=== PATIENT | male | born 1945 | race Caucasian/White ===

== ENCOUNTER 2018-03-28 13:14 | Emergency (ER) | payer MEDICARE ==
[~2018-03-28] VITALS: Ht 180.3 cm; Wt 83.5 kg
[2018-03-28 14:42] LABS: International Normalized Ratio 1.68
== END 2018-03-28 14:49 | disposition home or self-care (01) ==
LOC: ER 13:14
PROVIDERS: Physician Assistant
DX: M54.5 Low back pain (principal); D68.9 Coagulation defect, unspecified; Z88.5 Allergy status to narcotic agent; I10 Essential (primary) hypertension; Z87.891 Personal history of nicotine dependence
CPT/HCPCS: 85610; 96372; 99283-25; J1885

== ENCOUNTER 2018-07-31 15:24 | Inpatient (IN) | payer MEDICARE, BC ==
[~2018-07-31] VITALS: Ht 180.3 cm; Wt 80.7 kg
[2018-07-31] MEDS ORDERED: LISI5 PO (15:37)
[2018-07-31] MEDS ORDERED: ZESTRIL40 MG PO (15:37)
[2018-07-31] MEDS ORDERED: WARF6 PO (15:38)
[2018-07-31 19:36] LABS: BASOPHILS ABSOLUTE AUTO 0.02 K/mm3 (0.00-0.23); BASOPHILS PERCENT AUTO 0 % (0-2); EOSINOPHILS ABSOLUTE AUTO 0.06 K/mm3 (0.00-0.68); EOSINOPHILS PERCENT AUTO 1 % (0-6); Hemoglobin 13.8 g/dL (13.5-17.5); IMMATURE GRAN ABSOLUTE AUTO 0.02 K/mm3 (0.00-0.10); IMMATURE GRAN PERCENT AUTO 0 % (0-1); LYMPHOCYTES PERCENT AUTO 7 % (21-46); MONOCYTES ABSOLUTE AUTO 0.69 K/mm3 (0.16-1.47); MONOCYTES PERCENT AUTO 8 % (4-13); Mean Corpuscular HGB Conc 34.5 g/dL (31.5-36.5); Mean Corpuscular Volume 93 fL (80-100); Mean Platelet Volume 9.8 fL (9.1-12.4); NEUTROPHILS ABSOLUTE AUTO 7.09 K/mm3 (1.96-9.15); NEUTROPHILS PERCENT AUTO 84 % (41-73); Platelet Count 173 K/mm3 (150-400); RDW Coefficient Variation 12.7 % (11.7-14.2); RDW Standard Deviation 43.8 fL (35.1-46.3); Red Blood Cell Count 4.31 M/mm3 (4.30-5.90); White Blood Cell Count 8.48 K/mm3 (4.00-11.30)
[2018-07-31 19:52] LABS: Bun/Creatinine Ratio 15.4 (12.0-20.0); Calcium, Blood 8.1 mg/dL (8.5-10.1); Creatinine, Blood 1.3 mg/dL (0.60-1.20); Potassium, Blood 4.7 mmol/L (3.5-5.5)
[2018-07-31 19:58] LABS: International Normalized Ratio 1.59; Prothrombin Time Results 16.2 Sec (9.7-11.5)
--- NOTE | 2018-08-01 05:04 | NUR ---
SHIFT SUMMARY PT NEW ADMIT THIS SHIFT. AAOX4. NPO. DISCOMFORT CONTROLLED WITH 1MG IV DILAUDID. NO NAUSEA/EMESIS. PPP, PT DENIES N/T BLE, MOVES TOES WELL, BRISK CAP REFILL. PT REPOSITION FOR COMFORT THIS SHIFT. QUESTIONS ANSWERED REGARDING TX. ORIENTED TO ROOM + CALL LIGHT USE + PT DEMONSTRATED USE OF CALL LIGHT. ORTHO CONSULT CALLED. PT RESTING THIS AM. WILL CONTINUE TO MONITOR.
[2018-08-01 05:09] LABS: Hematocrit 38.6 % (37.0-53.0); Hemoglobin 13.4 g/dL (13.5-17.5); Mean Corpuscular HGB 31.7 pg (26.0-34.0); Mean Corpuscular HGB Conc 34.7 g/dL (31.5-36.5); Mean Corpuscular Volume 91 fL (80-100); Mean Platelet Volume 10.1 fL (9.1-12.4); Platelet Count 160 K/mm3 (150-400); RDW Coefficient Variation 12.8 % (11.7-14.2); RDW Standard Deviation 41.9 fL (35.1-46.3); Red Blood Cell Count 4.23 M/mm3 (4.30-5.90)
[2018-08-01 05:27] LABS: Alanine Aminotransfer (ALT/SGP 16 U/L (12-78); Albumin, Blood 3.2 g/dL (3.4-5.0); Albumin/Globulin Ratio 1.1 (0.8-1.8); Alk Phos 56 U/L (50-136); Anion Gap 6 mmol/L (6-16); Aspartate Aminotrans (AST/SGOT 17 U/L (12-37); Bilirubin, Total 1.3 mg/dL (0.1-1.0); Blood Urea Nitrogen 20 mg/dL (8-24); Bun/Creatinine Ratio 17.1 (12.0-20.0); CO2, Blood 27 mmol/L (21-32); Calcium, Blood 7.7 mg/dL (8.5-10.1); Chloride, Blood 110 mmol/L (98-108); Creatinine, Blood 1.17 mg/dL (0.60-1.20); Globulin, Blood 2.9 g/dL (2.2-4.0); Glomerular Filtration Rate >60 (60-); Glucose, Blood 101 mg/dL (70-99); Potassium, Blood 4.3 mmol/L (3.5-5.5); Sodium, Blood 143 mmol/L (136-145); Total Protein, Blood 6.1 g/dL (6.4-8.2)
[2018-08-01 07:56] LABS: International Normalized Ratio 1.56; Prothrombin Time Results 15.9 Sec (9.7-11.5)
--- NOTE | 2018-08-01 08:15 | NUR ---
DR FINLEY CONTACTED RE: INR 1.[address] TORO REQUEST TO ADMIN [facility].
[2018-08-01 14:04] LABS: International Normalized Ratio 1.33; Prothrombin Time Results 13.7 Sec (9.7-11.5)
--- NOTE | 2018-08-01 14:15 | NUR ---
PATIENT TO DAY SURGERY; HE HAS NOTIFIED BY PHONE.
--- NOTE | 2018-08-01 14:24 | NUR ---
INTO SDS VIA BED. PT REPORTS 2/10 LEFT HIP PAIN AT REST THAT INCREASED TO 6/10 WITH ANY MOVEMENT. History, Chart, Medications and Allergies reviewed before start of procedure.Lungs clear T/O to Auscultation.SATS>90% ON 2 LITERS NASAL CANULA. Patient confirms NPO status and agrees with scheduled surgery.NO PREP TO LEFT HIP DUE TO PT PAIN.
--- NOTE | 2018-08-01 20:06 | NUR ---
"TECHNOLOGY PROJECT MANAGER | PATIENT TRANSFERRED TO SURGICAL FLOOR This RN took pt to surgical floor. Helped get patient settled into room. Patient was A/O. Requesting fluids. Denied pain. SCD's on. Polar pack in room. Patient placed on 1 L NC. Sats > 92%. Advised Zuleika RN of TXA dose due now. Helped prep TXA for infusion. Receiving RN denied further questions or needs."
[2018-08-02 04:16] LABS: Hematocrit 31.2 % (37.0-53.0); Hemoglobin 10.7 g/dL (13.5-17.5); Mean Corpuscular HGB 31.9 pg (26.0-34.0); Mean Corpuscular HGB Conc 34.3 g/dL (31.5-36.5); Mean Corpuscular Volume 93 fL (80-100); Mean Platelet Volume 9.9 fL (9.1-12.4); Platelet Count 154 K/mm3 (150-400); RDW Coefficient Variation 12.6 % (11.7-14.2); RDW Standard Deviation 43.3 fL (35.1-46.3); Red Blood Cell Count 3.35 M/mm3 (4.30-5.90)
[2018-08-02 04:35] LABS: Anion Gap 5 mmol/L (6-16); Blood Urea Nitrogen 20 mg/dL (8-24); Bun/Creatinine Ratio 19.4 (12.0-20.0); CO2, Blood 27 mmol/L (21-32); Calcium, Blood 7.1 mg/dL (8.5-10.1); Chloride, Blood 106 mmol/L (98-108); Creatinine, Blood 1.03 mg/dL (0.60-1.20); Glomerular Filtration Rate >60 (60-); Glucose, Blood 189 mg/dL (70-99); Potassium, Blood 5.1 mmol/L (3.5-5.5); Sodium, Blood 138 mmol/L (136-145)
--- NOTE | 2018-08-02 07:18 | NUR ---
SUMMARY POD #1 TRINO BARROW REMAINS C/D/I. CIRC WNL. PT HAS BEEN UP TO THE BATHROOM X1 WITH 1 PERSON ASSIST, FWW, & GAIT BELT. PAIN MANAGED WITH TYLENOL & TORADOL. TOLERATING PO INTAKE. LR INFUSING @ 125 ML/HR. REPORT GIVEN TO DAY RN. CALL LIGHT IN REACH.
[2018-08-02 09:45] LABS: International Normalized Ratio 1.34; Prothrombin Time Results 13.8 Sec (9.7-11.5)
--- NOTE | 2018-08-02 18:26 | NUR ---
SHIFT SUMMARY PAIN HAS BEEN MANAGED WITH PO PAIN MEDICATION, PT REPORTS PAIN IS MINIMAL. PT WORKED WITH THERAPY TODAY. POSSIBLE HOME TOMORROW. CALCIUM WAS LOW TODAY AND WAS REPLACED. VSS. WILL MONITOR UNTIL REPORT TO ONCOMING RN.
[2018-08-03 04:11] LABS: Hematocrit 28.2 % (37.0-53.0); Hemoglobin 9.6 g/dL (13.5-17.5); Mean Corpuscular HGB 31.3 pg (26.0-34.0); Mean Corpuscular Volume 92 fL (80-100); Mean Platelet Volume 10.1 fL (9.1-12.4); Platelet Count 138 K/mm3 (150-400); RDW Coefficient Variation 12.9 % (11.7-14.2); Red Blood Cell Count 3.07 M/mm3 (4.30-5.90); White Blood Cell Count 6.34 K/mm3 (4.00-11.30)
[2018-08-03 04:26] LABS: International Normalized Ratio 1.44; Prothrombin Time Results 14.8 Sec (9.7-11.5)
--- NOTE | 2018-08-03 07:17 | NUR ---
SHIFT SUMMARY RESTED WELL, ABLE TO REPOSITION SELF IN BED. DENEIS PAIN OR DISCOMFORT AT THIS TIME. DRESSING TO LEFT HIP IS C/D/I. DENIES FURTHER NEEDS AT THIS TIME. SAFETY MEASURES IN PLACE. WILL CONTINUE TO MONITOR.
[2018-08-03] MEDS ORDERED: ACET500 PO (10:29)
[2018-08-03] MEDS ORDERED: ASPI325EC PO (11:54)
--- NOTE | 2018-08-03 12:21 | NUR ---
DISCHARGE PT PROVIDED WITH WRITTEN AND VERBAL DISCHARGE INSTRUCTIONS. PT REPORTED UNDERSTANDING AFTER QUESTIONS WERE ANSWERED. PT ESCORTED OUT IN W/C BY NABILA MEHTA. WILL CONTINUE TO MONITOR.
--- NOTE | 2018-08-04 13:10 | NUR ---
08/04/18 1310 Jael Anders VERIFICATIONS: EDIT CHART.
== END 2018-08-03 12:19 | disposition home or self-care (01) | DRG 470 ==
LOC: ER 15:24 → SURS 15:25
PROVIDERS: Emergency Medicine; Internal Medicine; Orthopaedic Surgery; ADMIT Internal Medicine
PROC: 0SRB03A Replacement of Left Hip Joint with Ceramic Synthetic Substitute, Uncemented, Open Approach (ICD-10-PCS; principal; 2018-08-01 14:45)
DX: S72.002A Fracture of unspecified part of neck of left femur, initial encounter for closed fracture (principal); W19.XXXA Unspecified fall, initial encounter; I12.9 Hypertensive chronic kidney disease with stage 1 through stage 4 chronic kidney disease, or unspecified chronic kidney disease; N18.3 Chronic kidney disease, stage 3 (moderate); E83.51 Hypocalcemia; Z79.01 Long term (current) use of anticoagulants; Z85.71 Personal history of Hodgkin lymphoma; Z86.718 Personal history of other venous thrombosis and embolism; Z87.891 Personal history of nicotine dependence; D64.9 Anemia, unspecified
CPT/HCPCS: 36415; 36430; 71045; 72170; 73080; 73502; 80048; 80053; 85025; 85027; 85610; 85730; 86900; 86901; 88305; 93005; 93010; 96374; 96375; 96376; 97110; 97161; 97530; 99284-25; C1776; J0171; J0610; J0690; J0735; J1650; J1885; J2370; J2405; J2704; J2795; J3010; J7030; J7050; J7120; P9059

== ENCOUNTER → 2019-05-04 | Outpatient (CLI) | payer MEDICARE, BC ==
[~2019-05-04] MED LIST: ACET500 PO; ASPI325EC PO; LISI5 PO; WARF6 PO; ZESTRIL40 MG PO
[2019-05-04 15:25] LABS: White Blood Cells, Urine 0-2 /hpf (0-5)
[2019-05-04 15:26] LABS: Bacteria Few /hpf; Hyaline Casts 0-2 /lpf (0-2); Squamous Epithelial Cells Rare /hpf (Few)
== END ==
LOC: LAB 13:57 → LAB SHORT 13:57
PROVIDERS: Internal Medicine
DX: I10 Essential (primary) hypertension (principal); N20.0 Calculus of kidney
CPT/HCPCS: 81015; 82570; 84156

== ENCOUNTER 2020-01-27 15:20 | Emergency (ER) | payer MEDICARE, BC ==
[~2020-01-27] VITALS: Ht 180.3 cm; Wt 81.7 kg
[2020-01-27 16:22] LABS: International Normalized Ratio 1.82; Prothrombin Time Results 18.8 Sec (9.7-11.5)
[2020-01-27] MEDS ORDERED: PRAVASTATIN SOD20 MG PO (16:32)
[2020-01-27] MEDS ORDERED: Coumadin5 MG PO (16:59)
[2020-01-28] MEDS ORDERED: AMLODIPINE BES2.5 MG PO (07:19)
== END 2020-01-27 18:02 | disposition home or self-care (01) ==
LOC: ER 15:20
PROVIDERS: Physician Assistant
DX: E86.0 Dehydration (principal); I10 Essential (primary) hypertension; Z79.01 Long term (current) use of anticoagulants; Z79.899 Other long term (current) drug therapy; Z88.5 Allergy status to narcotic agent; Z79.82 Long term (current) use of aspirin; Z86.73 Personal history of transient ischemic attack (TIA), and cerebral infarction without residual deficits; Z87.891 Personal history of nicotine dependence
CPT/HCPCS: 36415; 71046; 85610; 93005; 93010; 99284-25; J3411; J3475; J7030; J7042; J7120

== ENCOUNTER 2020-01-28 06:49 | Emergency (ER) | payer MEDICARE, BC ==
[~2020-01-28] VITALS: Ht 180.3 cm; Wt 81.7 kg
[~2020-01-28 06:49] MED LIST changes: +Coumadin5 MG PO; +PRAVASTATIN SOD20 MG PO
[2020-01-28] MEDS ORDERED: AMLODIPINE BES2.5 MG PO (07:19)
[2020-01-28 07:57] LABS: Anion Gap 5 mmol/L (6-16); Blood Urea Nitrogen 18 mg/dL (8-24); Bun/Creatinine Ratio 16.1 (12.0-20.0); CO2, Blood 27 mmol/L (21-32); Calcium, Blood 8.2 mg/dL (8.5-10.1); Chloride, Blood 107 mmol/L (98-108); Creatinine, Blood 1.12 mg/dL (0.60-1.20); Glomerular Filtration Rate >60 (60-); Glucose, Blood 101 mg/dL (70-99); Potassium, Blood 4.4 mmol/L (3.5-5.5); Sodium, Blood 139 mmol/L (136-145)
[2020-01-28 08:23] LABS: International Normalized Ratio 2.01; Prothrombin Time Results 20.7 Sec (9.7-11.5)
== END 2020-01-28 09:30 | disposition home or self-care (01) ==
LOC: ER 06:49
PROVIDERS: Emergency Medicine
DX: C85.91 Non-Hodgkin lymphoma, unspecified, lymph nodes of head, face, and neck (principal); R13.10 Dysphagia, unspecified; E86.0 Dehydration; I10 Essential (primary) hypertension; Z79.01 Long term (current) use of anticoagulants; Z88.5 Allergy status to narcotic agent; Z86.718 Personal history of other venous thrombosis and embolism; Z79.899 Other long term (current) drug therapy
CPT/HCPCS: 36415; 80048; 85610; 99283; J7120

== ENCOUNTER → 2020-02-22 | Outpatient (CLI) | payer MEDICARE, BC ==
[~2020-02-22] MED LIST changes: +AMLODIPINE BES2.5 MG PO; +AZIT250 PO; +CEFU500T30 PO; +CLOB.05TO TOP; +HYDROCODONE-AC1 EAC8; +VITAMIN D310 MC4 PO
== END ==
LOC: LAB SHORT 17:25
DX: D48.5 Neoplasm of uncertain behavior of skin (principal); R23.3 Spontaneous ecchymoses; L08.9 Local infection of the skin and subcutaneous tissue, unspecified
CPT/HCPCS: 87070; 87205

== ENCOUNTER → 2020-02-29 | Outpatient (CLI) | payer MEDICARE, BC ==
[2020-03-01 15:00] LABS: Performing Lab SYMBIODX; Test Name TIS BPSY/FLOW
[2020-03-04 10:41] LABS: Result SEE PATHOTH RESULTS
[2020-03-08 13:04] LABS: Performing Lab SYMBIODX; Test Name TISSUE BIOPSY
[2020-03-14 15:42] LABS: Result SEE PATHOTH RESULTS
== END ==
LOC: LAB SHORT 08:10 → PLD 08:10
PROVIDERS: Pathology Clinical Pathology/Laboratory Medicine; Pathology Dermatopathology
DX: C83.33 Diffuse large B-cell lymphoma, intra-abdominal lymph nodes (principal)
CPT/HCPCS: 88184; 88185; 88321; 88341; 88342; 88360

== ENCOUNTER 2020-03-12 13:39 | Emergency (ER) | payer MEDICARE, BC ==
[~2020-03-12] VITALS: Ht 180.3 cm; Wt 74.8 kg
[~2020-03-12 13:39] MED LIST changes: -AZIT250 PO; -CEFU500T30 PO; -CLOB.05TO TOP; -HYDROCODONE-AC1 EAC8; -VITAMIN D310 MC4 PO
[2020-03-12] MEDS ORDERED: HYDROCODONE-AC1 EAC8 (14:08)
[2020-03-12 15:14] LABS: BASOPHILS ABSOLUTE AUTO 0.03 K/mm3 (0.00-0.23); BASOPHILS PERCENT AUTO 1 % (0-2); EOSINOPHILS PERCENT AUTO 0 % (0-6); Hematocrit 39.1 % (37.0-53.0); IMMATURE GRAN ABSOLUTE AUTO 0.01 K/mm3 (0.00-0.10); IMMATURE GRAN PERCENT AUTO 0 % (0-1); LYMPHOCYTES ABSOLUTE AUTO 0.25 K/mm3 (0.84-5.20); LYMPHOCYTES PERCENT AUTO 6 % (21-46); MONOCYTES ABSOLUTE AUTO 0.44 K/mm3 (0.16-1.47); MONOCYTES PERCENT AUTO 10 % (4-13); Mean Corpuscular HGB 30.1 pg (26.0-34.0); Mean Corpuscular HGB Conc 33.2 g/dL (31.5-36.5); Mean Corpuscular Volume 91 fL (80-100); Mean Platelet Volume 9.4 fL (9.1-12.4); NEUTROPHILS ABSOLUTE AUTO 3.54 K/mm3 (1.96-9.15); NEUTROPHILS PERCENT AUTO 83 % (41-73); Platelet Count 178 K/mm3 (150-400); RDW Coefficient Variation 13.1 % (11.7-14.2); RDW Standard Deviation 43.3 fL (35.1-46.3); Red Blood Cell Count 4.32 M/mm3 (4.30-5.90); White Blood Cell Count 4.27 K/mm3 (4.00-11.30)
[2020-03-12 15:28] LABS: International Normalized Ratio 2.14; Prothrombin Time Results 21.9 Sec (9.7-11.5)
[2020-03-12 15:37] LABS: Alanine Aminotransfer (ALT/SGP 28 U/L (12-78); Albumin, Blood 3.5 g/dL (3.4-5.0); Alk Phos 75 U/L (50-136); Anion Gap 6 mmol/L (6-16); Aspartate Aminotrans (AST/SGOT 26 U/L (12-37); Bilirubin, Total 1.2 mg/dL (0.1-1.0); Blood Urea Nitrogen 30 mg/dL (8-24); Bun/Creatinine Ratio 17.1 (12.0-20.0); CO2, Blood 28 mmol/L (21-32); Calcium, Blood 8.2 mg/dL (8.5-10.1); Chloride, Blood 103 mmol/L (98-108); Creatinine, Blood 1.75 mg/dL (0.60-1.20); Globulin, Blood 3.6 g/dL (2.2-4.0); Glomerular Filtration Rate 41 (60-); Glucose, Blood 104 mg/dL (70-99); Magnesium, Blood 2.1 mg/dL (1.6-2.4); Potassium, Blood 4.7 mmol/L (3.5-5.5); Sodium, Blood 137 mmol/L (136-145); Total Protein, Blood 7.1 g/dL (6.4-8.2); Troponin I <0.015 ng/mL (0.000-0.040)
[2020-04-07] MEDS ORDERED: VITAMIN D310 MC4 PO (13:08)
[2020-04-07] MEDS ORDERED: CLOB.05TO TOP (13:09)
== END 2020-03-12 18:44 | disposition home or self-care (01) ==
LOC: ER 13:39
PROVIDERS: Emergency Medicine
DX: R55 Syncope and collapse (principal); Z79.01 Long term (current) use of anticoagulants; Z79.899 Other long term (current) drug therapy
CPT/HCPCS: 71045; 80053; 83735; 83880; 84484; 85025; 85610; 93005; 93010; 96360; 96361; 99285-25; J7120

== ENCOUNTER 2020-03-17 10:46 | Inpatient (IN) | payer MEDICARE, BC ==
[~2020-03-17] VITALS: Ht 180.3 cm; Wt 74.1 kg
[~2020-03-17 10:46] MED LIST changes: +HYDROCODONE-AC1 EAC8
[2020-03-17 12:24] LABS: BASOPHILS ABSOLUTE AUTO 0.02 K/mm3 (0.00-0.23); BASOPHILS PERCENT AUTO 0 % (0-2); EOSINOPHILS PERCENT AUTO 0 % (0-6); Hematocrit 39.2 % (37.0-53.0); Hemoglobin 13.6 g/dL (13.5-17.5); IMMATURE GRAN ABSOLUTE AUTO 0.02 K/mm3 (0.00-0.10); IMMATURE GRAN PERCENT AUTO 0 % (0-1); LYMPHOCYTES ABSOLUTE AUTO 0.38 K/mm3 (0.84-5.20); LYMPHOCYTES PERCENT AUTO 9 % (21-46); MONOCYTES ABSOLUTE AUTO 0.72 K/mm3 (0.16-1.47); MONOCYTES PERCENT AUTO 16 % (4-13); Mean Corpuscular HGB 30.8 pg (26.0-34.0); Mean Corpuscular HGB Conc 34.7 g/dL (31.5-36.5); Mean Corpuscular Volume 89 fL (80-100); Mean Platelet Volume 10.3 fL (9.1-12.4); NEUTROPHILS ABSOLUTE AUTO 3.34 K/mm3 (1.96-9.15); NEUTROPHILS PERCENT AUTO 75 % (41-73); Platelet Count 186 K/mm3 (150-400); RDW Coefficient Variation 12.9 % (11.7-14.2); RDW Standard Deviation 42.2 fL (35.1-46.3); Red Blood Cell Count 4.42 M/mm3 (4.30-5.90); White Blood Cell Count 4.48 K/mm3 (4.00-11.30)
[2020-03-17 12:31] LABS: International Normalized Ratio 1.37; Prothrombin Time Results 14.4 Sec (9.7-11.5)
[2020-03-17 12:39] LABS: Alanine Aminotransfer (ALT/SGP 36 U/L (12-78); Albumin/Globulin Ratio 0.8 (0.8-1.8); Alk Phos 57 U/L (50-136); Anion Gap 7 mmol/L (6-16); Aspartate Aminotrans (AST/SGOT 48 U/L (12-37); Blood Urea Nitrogen 32 mg/dL (8-24); Bun/Creatinine Ratio 20.4 (12.0-20.0); CO2, Blood 27 mmol/L (21-32); Calcium, Blood 8.7 mg/dL (8.5-10.1); Chloride, Blood 102 mmol/L (98-108); Creatinine, Blood 1.57 mg/dL (0.60-1.20); Globulin, Blood 3.6 g/dL (2.2-4.0); Glomerular Filtration Rate 46 (60-); Glucose, Blood 126 mg/dL (70-99); Potassium, Blood 4.1 mmol/L (3.5-5.5); Sodium, Blood 136 mmol/L (136-145); Total Protein, Blood 6.6 g/dL (6.4-8.2); Troponin I <0.015 ng/mL (0.000-0.040)
[2020-03-17 13:43] LABS: Influenza A, PCR Negative (NEGATIVE); Influenza B, PCR Negative (NEGATIVE); Resp Syncytial Virus, PCR Negative (NEGATIVE); SARS-Cov-2 (COVID-19) PCR, MMC Negative (NEGATIVE)
--- NOTE | 2020-03-17 19:22 | NUR ---
SHIFT SUMMARY: ASSUMED CARE OF PATIENT AT 1704 UPON HIS ARRIVAL FROM ED. ABLE TO STAND AND TRANSFER TO BED. RECEIVING OXYGEN AT 3 L/MIN NC, DOES NOT USE O2 AT HOME; DYSPNEIC AT REST. DENIES PAIN AT THIS TIME. HAS DIFFICULTY SWALLOWING AND POOR APPETITE WITH > 20 LBS WEIGHT LOSS IN THE LAST TWO MONTHS. PLACED TELEMETRY, SR 95. IVF INFUSING. CARDIAC ECHO COMPLETED.
[2020-03-17] MEDS ORDERED: WARF6 PO (22:58)
--- NOTE | 2020-03-18 05:08 | NUR ---
HVAC TECHNICIAN RESIDENTIAL SUMMARY NO ACUTE CHANGES THIS SHIFT. PT AAOX4 AND VERY PLEASANT. STARTED SHIFT ON 3L O2 VIA NC BUT WAS SATTING IN THE HIGH 90'S SO TITRATED DOWN TO 2L. MAINTAINING SATS MID 90'S AT THIS TIME. 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 PT STATES HE GOES TO A CLINIC AND HAS DRESSING CHANGED EVERY 2-3 DAYS. 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 DENIES PAIN OF AREA. PHOTO PLACED IN CHART. PT HAS USED URINAL IN BED WITH NO ISSUES. VSS, WILL CONTINUE TO MONITOR.
[2020-03-18 05:22] LABS: Bun/Creatinine Ratio 18.4 (12.0-20.0); Creatinine, Blood 1.41 mg/dL (0.60-1.20); Potassium, Blood 4.5 mmol/L (3.5-5.5)
[2020-03-18 05:24] LABS: International Normalized Ratio 1.59; Prothrombin Time Results 16.6 Sec (9.7-11.5)
--- NOTE | 2020-03-18 19:18 | NUR ---
SHIFT SUMMARY: NO ACUTE EVENTS THIS SHIFT. NO EVENTS ON TELEMETRY. O2 @ 2 L/MIN NC, DYSPNEIC AT REST. DENIES PAIN. DIET CHANGED TO SOFT BITE SIZE, TOLERATING. DRESSING ON R LOWER ABDOMEN CD&I. CHANGES POSITION INDPENEDENTLY. VISITED TODAY.
[2020-03-19 04:34] LABS: BASOPHILS ABSOLUTE AUTO 0.02 K/mm3 (0.00-0.23); BASOPHILS PERCENT AUTO 1 % (0-2); EOSINOPHILS ABSOLUTE AUTO 0.01 K/mm3 (0.00-0.68); EOSINOPHILS PERCENT AUTO 0 % (0-6); Hematocrit 33.6 % (37.0-53.0); Hemoglobin 11.1 g/dL (13.5-17.5); IMMATURE GRAN ABSOLUTE AUTO 0.01 K/mm3 (0.00-0.10); IMMATURE GRAN PERCENT AUTO 0 % (0-1); LYMPHOCYTES ABSOLUTE AUTO 0.36 K/mm3 (0.84-5.20); LYMPHOCYTES PERCENT AUTO 12 % (21-46); MONOCYTES ABSOLUTE AUTO 0.65 K/mm3 (0.16-1.47); MONOCYTES PERCENT AUTO 22 % (4-13); Mean Corpuscular HGB 29.5 pg (26.0-34.0); Mean Corpuscular Volume 89 fL (80-100); Mean Platelet Volume 9.8 fL (9.1-12.4); NEUTROPHILS ABSOLUTE AUTO 1.97 K/mm3 (1.96-9.15); NEUTROPHILS PERCENT AUTO 65 % (41-73); Platelet Count 149 K/mm3 (150-400); RDW Standard Deviation 42.6 fL (35.1-46.3); Red Blood Cell Count 3.76 M/mm3 (4.30-5.90); White Blood Cell Count 3.02 K/mm3 (4.00-11.30)
[2020-03-19 04:49] LABS: Prothrombin Time Results 20.6 Sec (9.7-11.5)
[2020-03-19 04:58] LABS: Bun/Creatinine Ratio 17.7 (12.0-20.0); Calcium, Blood 8.2 mg/dL (8.5-10.1); Creatinine, Blood 1.3 mg/dL (0.60-1.20); Potassium, Blood 4.4 mmol/L (3.5-5.5)
--- NOTE | 2020-03-19 05:50 | NUR ---
WEB PRESS OPERATOR HELPER OFFSET SUMMARY NO ACUTE CHANGES THIS SHIFT. PT AAOX4 AND PLEASANT. ABLE TO MAKE NEEDS KNOWN AND CALLS APPROPRIATELY FOR ASSISTANCE. REMAINS ON 2L O2 VIA NC. PT STATES RESPIRATORY STATUS IS IMPROVED FROM WHEN HE WAS FIRST ADMITTED. PT REPORTS BEING EAGER TO BEGIN TREATMENT FOR THE POSSIBLE RECURRENCE OF HIS CANCER THAT WAS BIOPSIED A FEW DAYS AGO. PT DENIES PAIN AND HAS HAD NO COMPLAINTS THROUGH THE NIGHT. VSS, WILL CONTINUE TO MONITOR.
--- NOTE | 2020-03-19 17:49 | NUR ---
Shift Summary A/Ox3, pleasant and cooperative with care. SBA, uses bedside commode and urinal independently. Dyspnea with exertion. Home O2 eval completed. Currently on 2L O2 continuous. Tele: SR 90. Denies any pain, nausea, vomiting. No acute changes. Patient states ready to go home. WCTM.
--- NOTE | 2020-03-19 23:47 | NUR ---
AWAKE AT SHIFT COMMENCE. DENIED PAIN OR LOSS OF FEELING. CALL LIGHT IN REACH.
--- NOTE | 2020-03-20 03:24 | NUR ---
SHIFT SUMMARY HAS BEEN RESTING QUIETLY WITH FEW INTERRUPTIONS THIS SHIFT. ALERT AND ORIENTED CALL LIGHT IN REACH. UP AND AD SAEED WITH STAND BY ASSIST. NO NOTED ACUTE DISTRESS.
[2020-03-20 04:58] LABS: International Normalized Ratio 2.06; Prothrombin Time Results 21.2 Sec (9.7-11.5)
[2020-03-20] MEDS ORDERED: CEFU500T30 PO (12:47)
[2020-03-20] MEDS ORDERED: AZIT250 PO (12:47)
--- NOTE | 2020-03-20 13:43 | NUR ---
Discharge Summary Patient discharging to home. Reviewed discharge paperwork with patient, copy provided. Meds faxed to [facility] per patient request. [facility] delivered portable oxygen tank to patient. will need to fax oxygen orders to [facility] tomorrow. IV removed. Personal belongings will be sent home. Escorted by LAYOUT DESIGNER via w/c, personal transport home.
[2020-04-07] MEDS ORDERED: VITAMIN D310 MC4 PO (13:08)
[2020-04-07] MEDS ORDERED: CLOB.05TO TOP (13:09)
== END 2020-03-20 14:20 | disposition home or self-care (01) | DRG 193 ==
LOC: ER 10:46 → MEDS 14:43
PROVIDERS: Emergency Medicine; Pharmacist; Student in an Organized Health Care Education/Training Program; ADMIT Hospitalist
DX: J18.9 Pneumonia, unspecified organism (principal); J96.01 Acute respiratory failure with hypoxia; C83.38 Diffuse large B-cell lymphoma, lymph nodes of multiple sites; N17.9 Acute kidney failure, unspecified; Z20.822 Contact with and (suspected) exposure to COVID-19; R55 Syncope and collapse; I12.9 Hypertensive chronic kidney disease with stage 1 through stage 4 chronic kidney disease, or unspecified chronic kidney disease; N18.30 Chronic kidney disease, stage 3 unspecified; R13.10 Dysphagia, unspecified; L40.9 Psoriasis, unspecified; M48.54XD Collapsed vertebra, not elsewhere classified, thoracic region, subsequent encounter for fracture with routine healing; Z87.891 Personal history of nicotine dependence; Z86.718 Personal history of other venous thrombosis and embolism; Z79.899 Other long term (current) drug therapy; Z79.01 Long term (current) use of anticoagulants
CPT/HCPCS: 0241U; 36415; 71045; 71260; 80048; 80053; 83605; 83880; 84145; 84484; 85025; 85379; 85610; 85730; 86140; 87040; 93005; 93010; 93306; 94761; 96360; 96361; 96372-59; 99285-25; A9270; J0696; J1650; J7030; J7050; J7120; Q9967

== ENCOUNTER 2020-04-12 09:09 | Day surgery (SDC) | payer MEDICARE, BC ==
[~2020-04-12] VITALS: Ht 180.3 cm; Wt 68.7 kg
[~2020-04-12 09:09] MED LIST changes: +AZIT250 PO; +CEFU500T30 PO; +CLOB.05TO TOP; +VITAMIN D310 MC4 PO
--- NOTE | 2020-04-12 10:08 | NUR ---
History, Chart, Medications and Allergies reviewed before start of procedure. Lungs clear T/O to Auscultation. Patient confirms NPO status and agrees with scheduled surgery. Pre-Op teaching done. Pt verbalizes understanding. Patient States Post-Procedure ride home has been arranged. Patient reports completing Chlorhexadine shower X2 prior to admission to hospital.
--- NOTE | 2020-04-12 11:29 | NUR ---
PT REPORT AND ASSUMED CARE FROM MARY DIAZ RN. DR RUSSELL IN TO CONSULT WITH PATIENT. PT DOES NOT WANT TO BE GIVEN VERSED PRIOR TO GOING TO THE OR.
--- NOTE | 2020-04-12 13:08 | NUR ---
PLACEMENT GOOD PER DR HERRING IN RADIOLOGY
--- NOTE | 2020-04-12 13:21 | NUR ---
Dressing to procedure site clean, dry, intact with no visible drainage, swelling, erythema or bruising noted. PT DENIES C/O OR CONCERNS. PROVIDED WARM WATER PER P[T REQUEST
--- NOTE | 2020-04-12 13:52 | NUR ---
Patient up to Ambulate independently. Gait steady. Discharge instructions reviewed with patient. Patient verbalizes understanding. Copy given to patient to take home. Dressing to procedure site clean, dry, intact with no visible drainage, swelling, erythema or bruising noted. Patient States Post-Procedure ride home has been arranged. Discharged via wheelchair to private car for ride home. ALL BELONINGS SENT HOME WITH PATEINT
--- NOTE | 2020-04-14 10:06 | NUR ---
04/14/20 1006 Jael Anders VERIFICATIONS: EDIT CHART.
== END 2020-04-12 13:53 | disposition home or self-care (01) ==
LOC: ORD 09:09 → ORSCMMR 09:09 → ORD 10:30
PROVIDERS: Surgery
PROC: 0JH60WZ Insertion of Totally Implantable Vascular Access Device into Chest Subcutaneous Tissue and Fascia, Open Approach (ICD-10-PCS; principal; 2020-04-12 10:30)
DX: C85.10 Unspecified B-cell lymphoma, unspecified site (principal); I10 Essential (primary) hypertension; E78.5 Hyperlipidemia, unspecified; I73.9 Peripheral vascular disease, unspecified; Z86.718 Personal history of other venous thrombosis and embolism; Z86.73 Personal history of transient ischemic attack (TIA), and cerebral infarction without residual deficits; Z79.01 Long term (current) use of anticoagulants; Z79.899 Other long term (current) drug therapy
CPT/HCPCS: 77001; C1788; J0690; J1100; J1642; J2250; J2370; J2405; J2704; J3010; J7120

== ENCOUNTER → 2020-04-14 | Outpatient (CLI) | payer MEDICARE, BC ==
[2020-04-14 11:24] LABS: Alanine Aminotransfer (ALT/SGP 26 U/L (12-78); Albumin, Blood 2.9 g/dL (3.4-5.0); Albumin/Globulin Ratio 0.9 (0.8-1.8); Alk Phos 62 U/L (50-136); Anion Gap 5 mmol/L (6-16); Aspartate Aminotrans (AST/SGOT 22 U/L (12-37); Bilirubin, Total 0.5 mg/dL (0.1-1.0); Blood Urea Nitrogen 24 mg/dL (8-24); CO2, Blood 30 mmol/L (21-32); Calcium, Blood 8.7 mg/dL (8.5-10.1); Chloride, Blood 107 mmol/L (98-108); Creatinine, Blood 1.09 mg/dL (0.60-1.20); Globulin, Blood 3.1 g/dL (2.2-4.0); Glomerular Filtration Rate >60 (60-); Glucose, Blood 113 mg/dL (70-99); Lactate Dehydrogenase (Ld),Bld 198 U/L (100-240); Phosphorus, Blood 3.2 mg/dL (2.5-4.9); Potassium, Blood 3.8 mmol/L (3.5-5.5); Sodium, Blood 142 mmol/L (136-145)
== END | disposition home or self-care (01) ==
LOC: LAB 10:46 → LAB SHORT 10:46
PROVIDERS: Internal Medicine Hematology & Oncology
DX: C85.10 Unspecified B-cell lymphoma, unspecified site (principal); R22.9 Localized swelling, mass and lump, unspecified
CPT/HCPCS: 80053; 83615; 84100

== ENCOUNTER → 2020-04-21 | Outpatient (CLI) | payer MEDICARE, BC ==
[2020-04-21 21:06] LABS: Magnesium, Blood 2.1 mg/dL (1.6-2.4)
[2020-04-21 21:32] LABS: Alanine Aminotransfer (ALT/SGP 31 U/L (12-78); Albumin, Blood 3.3 g/dL (3.4-5.0); Albumin/Globulin Ratio 1.2 (0.8-1.8); Alk Phos 84 U/L (50-136); Anion Gap 4 mmol/L (6-16); Aspartate Aminotrans (AST/SGOT 14 U/L (12-37); Bilirubin, Total 0.7 mg/dL (0.1-1.0); Blood Urea Nitrogen 22 mg/dL (8-24); Bun/Creatinine Ratio 26.4 (12.0-20.0); CO2, Blood 28 mmol/L (21-32); Calcium, Blood 8.6 mg/dL (8.5-10.1); Chloride, Blood 104 mmol/L (98-108); Creatinine, Blood 0.83 mg/dL (0.60-1.20); Globulin, Blood 2.8 g/dL (2.2-4.0); Glomerular Filtration Rate >60 (60-); Glucose, Blood 98 mg/dL (70-99); Lactate Dehydrogenase (Ld),Bld 240 U/L (100-240); Phosphorus, Blood 2.9 mg/dL (2.5-4.9); Potassium, Blood 4.4 mmol/L (3.5-5.5); Sodium, Blood 136 mmol/L (136-145); Total Protein, Blood 6.1 g/dL (6.4-8.2)
== END | disposition home or self-care (01) ==
LOC: LAB 18:05 → LAB SHORT 18:05
PROVIDERS: Internal Medicine Hematology & Oncology
DX: C85.10 Unspecified B-cell lymphoma, unspecified site (principal)
CPT/HCPCS: 80053; 83615; 83735; 84100

== ENCOUNTER → 2020-04-25 | Outpatient (CLI) | payer MEDICARE, BC ==
[2020-04-25 15:28] LABS: Hematocrit 32.9 % (37.0-53.0); Hemoglobin 10.4 g/dL (13.5-17.5); Mean Corpuscular HGB 29.2 pg (26.0-34.0); Mean Corpuscular HGB Conc 31.6 g/dL (31.5-36.5); Mean Corpuscular Volume 92 fL (80-100); Mean Platelet Volume 10.7 fL (9.1-12.4); NRBC ABSOLUTE 0.07 K/mm3 (0.00-0.02); NRBC Auto 0.6 /100 WBC (0.0-0.2); Platelet Count 201 K/mm3 (150-400); RDW Coefficient Variation 17.8 % (11.7-14.2); RDW Standard Deviation 54.4 fL (35.1-46.3); Red Blood Cell Count 3.56 M/mm3 (4.30-5.90); White Blood Cell Count 11.23 K/mm3 (4.00-11.30)
[2020-04-25 15:37] LABS: Alanine Aminotransfer (ALT/SGP 22 U/L (12-78); Albumin, Blood 3.3 g/dL (3.4-5.0); Albumin/Globulin Ratio 1.1 (0.8-1.8); Alk Phos 105 U/L (50-136); Anion Gap 5 mmol/L (6-16); Aspartate Aminotrans (AST/SGOT 17 U/L (12-37); Bilirubin, Total 0.4 mg/dL (0.1-1.0); Blood Urea Nitrogen 13 mg/dL (8-24); Bun/Creatinine Ratio 12.4 (12.0-20.0); CO2, Blood 30 mmol/L (21-32); Calcium, Blood 8.6 mg/dL (8.5-10.1); Chloride, Blood 105 mmol/L (98-108); Creatinine, Blood 1.05 mg/dL (0.60-1.20); Globulin, Blood 2.9 g/dL (2.2-4.0); Glomerular Filtration Rate >60 (60-); Glucose, Blood 101 mg/dL (70-99); Phosphorus, Blood 3.5 mg/dL (2.5-4.9); Sodium, Blood 140 mmol/L (136-145); Total Protein, Blood 6.2 g/dL (6.4-8.2)
[2020-04-25 16:21] LABS: BAND PERCENT MAN 6 % (0-8); BASOPHILS PERCENT MAN 0 % (0-2); EOSINOPHILS ABSOLUTE MAN 0.11 K/mm3 (0.00-0.68); EOSINOPHILS PERCENT MAN 1 % (0-6); LYMPHOCYTES ABSOLUTE MAN 0.22 K/mm3 (0.84-5.20); LYMPHOCYTES PERCENT MAN 2 % (21-46); METAMYELOCYTE ABSOLUTE MAN 0.22 K/mm3 (0.00-0.00); METAMYELOCYTE PERCENT MAN 2 % (0-0); MONOCYTES ABSOLUTE MAN 1.23 K/mm3 (0.16-1.47); MONOCYTES PERCENT MAN 11 % (4-13); NEUTROPHILS ABSOLUTE MAN 9.43 K/mm3 (1.96-9.15); SEG NEUTROPHILS PERCENT MAN 78 % (41-73); TOTAL CELLS COUNTED 100
== END | disposition home or self-care (01) ==
LOC: LAB SHORT 13:28 → LAB 13:28
PROVIDERS: Internal Medicine Hematology & Oncology
DX: C85.10 Unspecified B-cell lymphoma, unspecified site (principal)
CPT/HCPCS: 80053; 84100; 85025

== ENCOUNTER → 2020-06-15 | Outpatient (CLI) | payer MEDICARE, BC ==
[2020-06-15 16:22] LABS: Alanine Aminotransfer (ALT/SGP 15 U/L (12-78); Albumin, Blood 3.7 g/dL (3.4-5.0); Albumin/Globulin Ratio 1.4 (0.8-1.8); Alk Phos 84 U/L (50-136); Anion Gap 6 mmol/L (6-16); Aspartate Aminotrans (AST/SGOT 12 U/L (12-37); Bilirubin, Total 0.4 mg/dL (0.1-1.0); Blood Urea Nitrogen 22 mg/dL (8-24); Bun/Creatinine Ratio 23.3 (12.0-20.0); CO2, Blood 25 mmol/L (21-32); Calcium, Blood 8.4 mg/dL (8.5-10.1); Chloride, Blood 107 mmol/L (98-108); Creatinine, Blood 0.94 mg/dL (0.60-1.20); Globulin, Blood 2.7 g/dL (2.2-4.0); Glomerular Filtration Rate >60 (60-); Glucose, Blood 205 mg/dL (70-99); Phosphorus, Blood 2.3 mg/dL (2.5-4.9); Potassium, Blood 4.2 mmol/L (3.5-5.5); Sodium, Blood 138 mmol/L (136-145); Total Protein, Blood 6.4 g/dL (6.4-8.2)
[2020-06-15 16:26] LABS: Lactate Dehydrogenase (Ld),Bld 150 U/L (100-240)
== END | disposition home or self-care (01) ==
LOC: LAB SHORT 09:35
PROVIDERS: Internal Medicine Hematology & Oncology
DX: C85.10 Unspecified B-cell lymphoma, unspecified site (principal)
CPT/HCPCS: 80053; 83615; 84100

== ENCOUNTER 2020-07-03 10:02 | Emergency (ER) | payer MEDICARE, BC ==
[~2020-07-03] VITALS: Ht 180.3 cm; Wt 74.8 kg
[2020-07-03 11:00] LABS: Calcium, Ionized (POC) 1.14 mmol/L (1.10-1.46); Chloride (POC) 100 mmol/L (98-108); Glucose (ISTAT POC) 116 mg/dL (70-99); Hemoglobin (POC) 12.2 g/dL (13.5-17.5); Potassium (POC) 4.4 mmol/L (3.5-5.5); Sodium (POC) 138 mmol/L (135-148); Total CO2 (POC) 30 mmol/L (21-32)
[2020-07-03 11:49] LABS: International Normalized Ratio 1.68; Prothrombin Time Results 17.6 Sec (9.7-11.5)
== END 2020-07-03 12:23 | disposition home or self-care (01) ==
LOC: ER 10:02
PROVIDERS: Physician Assistant
DX: I82.431 Acute embolism and thrombosis of right popliteal vein (principal); R79.1 Abnormal coagulation profile; Z88.5 Allergy status to narcotic agent; Z79.01 Long term (current) use of anticoagulants; Z79.899 Other long term (current) drug therapy
CPT/HCPCS: 36415; 80047; 85014; 85610; 93971; 99284-25; A9270; J7030

== ENCOUNTER → 2020-08-02 | Outpatient (CLI) | payer MEDICARE, BC ==
[2020-08-02 10:21] LABS: Alanine Aminotransfer (ALT/SGP 36 U/L (12-78); Albumin, Blood 3.6 g/dL (3.4-5.0); Albumin/Globulin Ratio 1.3 (0.8-1.8); Alk Phos 76 U/L (50-136); Anion Gap 5 mmol/L (6-16); Aspartate Aminotrans (AST/SGOT 20 U/L (12-37); Bilirubin, Total 0.5 mg/dL (0.1-1.0); Blood Urea Nitrogen 23 mg/dL (8-24); Bun/Creatinine Ratio 22.8 (12.0-20.0); CO2, Blood 30 mmol/L (21-32); Calcium, Blood 8.5 mg/dL (8.5-10.1); Chloride, Blood 106 mmol/L (98-108); Creatinine, Blood 1.01 mg/dL (0.60-1.20); Globulin, Blood 2.7 g/dL (2.2-4.0); Glomerular Filtration Rate >60 (60-); Glucose, Blood 95 mg/dL (70-99); Phosphorus, Blood 3.4 mg/dL (2.5-4.9); Potassium, Blood 4.7 mmol/L (3.5-5.5); Sodium, Blood 141 mmol/L (136-145); Total Protein, Blood 6.3 g/dL (6.4-8.2)
[2020-08-02 12:09] LABS: BASOPHILS ABSOLUTE AUTO 0.08 K/mm3 (0.00-0.23); BASOPHILS PERCENT AUTO 1 % (0-2); EOSINOPHILS ABSOLUTE AUTO 0.03 K/mm3 (0.00-0.68); EOSINOPHILS PERCENT AUTO 1 % (0-6); Hematocrit 35.6 % (37.0-53.0); Hemoglobin 11.5 g/dL (13.5-17.5); IMMATURE GRAN ABSOLUTE AUTO 0.27 K/mm3 (0.00-0.10); IMMATURE GRAN PERCENT AUTO 5 % (0-1); LYMPHOCYTES ABSOLUTE AUTO 0.24 K/mm3 (0.84-5.20); LYMPHOCYTES PERCENT AUTO 4 % (21-46); MONOCYTES ABSOLUTE AUTO 0.46 K/mm3 (0.16-1.47); MONOCYTES PERCENT AUTO 8 % (4-13); Mean Corpuscular HGB 30.3 pg (26.0-34.0); Mean Corpuscular HGB Conc 32.3 g/dL (31.5-36.5); Mean Corpuscular Volume 94 fL (80-100); Mean Platelet Volume 9.6 fL (9.1-12.4); NEUTROPHILS PERCENT AUTO 82 % (41-73); Platelet Count 231 K/mm3 (150-400); RDW Coefficient Variation 15.9 % (11.7-14.2); RDW Standard Deviation 53.4 fL (35.1-46.3); White Blood Cell Count 5.88 K/mm3 (4.00-11.30)
== END | disposition home or self-care (01) ==
LOC: LAB 09:55 → LAB SHORT 09:55
PROVIDERS: Internal Medicine Hematology & Oncology
DX: C85.10 Unspecified B-cell lymphoma, unspecified site (principal)
CPT/HCPCS: 80053; 84100; 85025

== ENCOUNTER 2020-08-19 10:19 | Emergency (ER) | payer MEDICARE, BC ==
[~2020-08-19] VITALS: Ht 180.3 cm; Wt 76.7 kg
[2020-08-19 10:59] LABS: BASOPHILS ABSOLUTE AUTO 0.06 K/mm3 (0.00-0.23); BASOPHILS PERCENT AUTO 1 % (0-2); EOSINOPHILS ABSOLUTE AUTO 0.08 K/mm3 (0.00-0.68); EOSINOPHILS PERCENT AUTO 1 % (0-6); Hematocrit 33.4 % (37.0-53.0); Hemoglobin 11.2 g/dL (13.5-17.5); IMMATURE GRAN ABSOLUTE AUTO 0.09 K/mm3 (0.00-0.10); IMMATURE GRAN PERCENT AUTO 2 % (0-1); LYMPHOCYTES ABSOLUTE AUTO 0.26 K/mm3 (0.84-5.20); LYMPHOCYTES PERCENT AUTO 4 % (21-46); MONOCYTES PERCENT AUTO 10 % (4-13); Mean Corpuscular HGB Conc 33.5 g/dL (31.5-36.5); Mean Corpuscular Volume 93 fL (80-100); Mean Platelet Volume 9.5 fL (9.1-12.4); NEUTROPHILS ABSOLUTE AUTO 5.08 K/mm3 (1.96-9.15); NEUTROPHILS PERCENT AUTO 82 % (41-73); Platelet Count 208 K/mm3 (150-400); RDW Coefficient Variation 15.9 % (11.7-14.2); RDW Standard Deviation 52.8 fL (35.1-46.3); Red Blood Cell Count 3.61 M/mm3 (4.30-5.90); White Blood Cell Count 6.17 K/mm3 (4.00-11.30)
[2020-08-19 11:19] LABS: Alanine Aminotransfer (ALT/SGP 24 U/L (12-78); Albumin, Blood 3.4 g/dL (3.4-5.0); Albumin/Globulin Ratio 1.2 (0.8-1.8); Alk Phos 71 U/L (50-136); Anion Gap 5 mmol/L (6-16); Aspartate Aminotrans (AST/SGOT 16 U/L (12-37); Bilirubin, Total 0.4 mg/dL (0.1-1.0); Blood Urea Nitrogen 27 mg/dL (8-24); Bun/Creatinine Ratio 28.6 (12.0-20.0); CO2, Blood 26 mmol/L (21-32); Calcium, Blood 8.2 mg/dL (8.5-10.1); Chloride, Blood 109 mmol/L (98-108); Creatinine, Blood 0.94 mg/dL (0.60-1.20); Globulin, Blood 2.8 g/dL (2.2-4.0); Glomerular Filtration Rate >60 (60-); Glucose, Blood 99 mg/dL (70-99); Potassium, Blood 4.7 mmol/L (3.5-5.5); Sodium, Blood 140 mmol/L (136-145); Total Protein, Blood 6.2 g/dL (6.4-8.2)
[2020-08-19 11:35] LABS: Source, Urine Clean Catch
[2020-08-19 11:49] LABS: International Normalized Ratio 2.71; Prothrombin Time Results 27.7 Sec (9.7-11.5)
[2020-08-19 11:54] LABS: Appearance, Urine Clear (Clear); Bilirubin, Urine Neg (Neg); Blood, Urine Neg (Neg); Color, Urine Yellow (P-Yellow); Glucose Qualitative, Urine Neg (Neg); Ketones, Urine Neg (Neg); Leukocyte Esterase, Urine Neg (Neg); Nitrite, Urine Neg (Neg); Protein, Urine Neg (Neg); Urobilinogen, Urine NORM (Normal)
== END 2020-08-19 12:45 | disposition home or self-care (01) ==
LOC: ER 10:19
PROVIDERS: Emergency Medicine; Physician Assistant
DX: R53.1 Weakness (principal); I10 Essential (primary) hypertension; Z88.5 Allergy status to narcotic agent; Z87.891 Personal history of nicotine dependence; Z79.899 Other long term (current) drug therapy
CPT/HCPCS: 80053; 81003; 84484; 85025; 85610; 93005; 93010; 99283-25; J1642; J7030

== ENCOUNTER 2020-12-07 11:38 | Emergency (ER) | payer MEDICARE, BC ==
[~2020-12-07] VITALS: Ht 180.3 cm; Wt 83.9 kg
[2020-12-07 13:15] LABS: BASOPHILS ABSOLUTE AUTO 0.02 K/mm3 (0.00-0.23); BASOPHILS PERCENT AUTO 0 % (0-2); EOSINOPHILS ABSOLUTE AUTO 0.01 K/mm3 (0.00-0.68); EOSINOPHILS PERCENT AUTO 0 % (0-6); Hematocrit 39.7 % (37.0-53.0); Hemoglobin 13.9 g/dL (13.5-17.5); IMMATURE GRAN ABSOLUTE AUTO 0.01 K/mm3 (0.00-0.10); IMMATURE GRAN PERCENT AUTO 0 % (0-1); LYMPHOCYTES ABSOLUTE AUTO 0.33 K/mm3 (0.84-5.20); LYMPHOCYTES PERCENT AUTO 6 % (21-46); MONOCYTES ABSOLUTE AUTO 1.14 K/mm3 (0.16-1.47); MONOCYTES PERCENT AUTO 20 % (4-13); Mean Corpuscular HGB 31.8 pg (26.0-34.0); Mean Corpuscular Volume 91 fL (80-100); Mean Platelet Volume 10.1 fL (9.1-12.4); NEUTROPHILS ABSOLUTE AUTO 4.11 K/mm3 (1.96-9.15); NEUTROPHILS PERCENT AUTO 73 % (41-73); Platelet Count 124 K/mm3 (150-400); RDW Coefficient Variation 13.1 % (11.7-14.2); RDW Standard Deviation 43.9 fL (35.1-46.3); Red Blood Cell Count 4.37 M/mm3 (4.30-5.90); White Blood Cell Count 5.62 K/mm3 (4.00-11.30)
[2020-12-07 13:33] LABS: Alanine Aminotransfer (ALT/SGP 18 U/L (12-78); Albumin, Blood 3.5 g/dL (3.4-5.0); Albumin/Globulin Ratio 1.1 (0.8-1.8); Alk Phos 64 U/L (50-136); Anion Gap 5 mmol/L (6-16); Aspartate Aminotrans (AST/SGOT 19 U/L (12-37); Bilirubin, Total 0.9 mg/dL (0.1-1.0); Blood Urea Nitrogen 18 mg/dL (8-24); Bun/Creatinine Ratio 15.9 (12.0-20.0); CO2, Blood 26 mmol/L (21-32); Calcium, Blood 8.2 mg/dL (8.5-10.1); Chloride, Blood 103 mmol/L (98-108); Creatinine, Blood 1.13 mg/dL (0.60-1.20); Globulin, Blood 3.2 g/dL (2.2-4.0); Glomerular Filtration Rate >60 (60-); Glucose, Blood 88 mg/dL (70-99); Magnesium, Blood 2.1 mg/dL (1.6-2.4); Potassium, Blood 4.1 mmol/L (3.5-5.5); Sodium, Blood 134 mmol/L (136-145); Total Protein, Blood 6.7 g/dL (6.4-8.2); Troponin I <0.015 ng/mL (0.000-0.040)
[2020-12-07 13:44] LABS: International Normalized Ratio 1.19; Prothrombin Time Results 12.4 Sec (9.7-11.5)
[2020-12-07] MEDS ORDERED: ONDA4ODT MM (15:10)
== END 2020-12-07 15:27 | disposition home or self-care (01) ==
LOC: ER 11:38
PROVIDERS: Student in an Organized Health Care Education/Training Program
DX: U07.1 COVID-19 (principal); R79.1 Abnormal coagulation profile; I10 Essential (primary) hypertension; E78.5 Hyperlipidemia, unspecified; Z88.5 Allergy status to narcotic agent; Z79.899 Other long term (current) drug therapy; Z79.01 Long term (current) use of anticoagulants; Z86.718 Personal history of other venous thrombosis and embolism
CPT/HCPCS: 71045; 80053; 83735; 84484; 85025; 85610; 96374; 99284-25; A9270; J1642; J2405; J7030

== ENCOUNTER 2020-12-17 17:51 | Inpatient (IN) | payer MEDICARE, BC ==
[~2020-12-17] VITALS: Ht 180.3 cm; Wt 77.9 kg
[~2020-12-17 17:51] MED LIST changes: +ONDA4ODT MM; +PRAVASTATIN SOD10 MG PO; -PRAVASTATIN SOD20 MG PO; -VITAMIN D310 MC4 PO; +VITAMIN D325 MC3 PO
[2020-12-17 20:53] LABS: BASOPHILS ABSOLUTE AUTO 0.01 K/mm3 (0.00-0.23); BASOPHILS PERCENT AUTO 0 % (0-2); EOSINOPHILS PERCENT AUTO 0 % (0-6); Hematocrit 41.1 % (37.0-53.0); Hemoglobin 14.3 g/dL (13.5-17.5); IMMATURE GRAN ABSOLUTE AUTO 0.04 K/mm3 (0.00-0.10); IMMATURE GRAN PERCENT AUTO 0 % (0-1); LYMPHOCYTES ABSOLUTE AUTO 0.24 K/mm3 (0.84-5.20); LYMPHOCYTES PERCENT AUTO 2 % (21-46); MONOCYTES ABSOLUTE AUTO 0.91 K/mm3 (0.16-1.47); MONOCYTES PERCENT AUTO 9 % (4-13); Mean Corpuscular HGB 31.9 pg (26.0-34.0); Mean Corpuscular HGB Conc 34.8 g/dL (31.5-36.5); Mean Corpuscular Volume 92 fL (80-100); Mean Platelet Volume 10.5 fL (9.1-12.4); NEUTROPHILS ABSOLUTE AUTO 8.73 K/mm3 (1.96-9.15); NEUTROPHILS PERCENT AUTO 88 % (41-73); Platelet Count 213 K/mm3 (150-400); RDW Coefficient Variation 13.2 % (11.7-14.2); RDW Standard Deviation 44.4 fL (35.1-46.3); Red Blood Cell Count 4.48 M/mm3 (4.30-5.90); White Blood Cell Count 9.93 K/mm3 (4.00-11.30)
[2020-12-17 21:17] LABS: Alanine Aminotransfer (ALT/SGP 17 U/L (12-78); Albumin, Blood 3.2 g/dL (3.4-5.0); Albumin/Globulin Ratio 0.8 (0.8-1.8); Alk Phos 69 U/L (50-136); Anion Gap 6 mmol/L (6-16); Aspartate Aminotrans (AST/SGOT 27 U/L (12-37); Bilirubin, Total 0.7 mg/dL (0.1-1.0); Blood Urea Nitrogen 31 mg/dL (8-24); Bun/Creatinine Ratio 17.8 (12.0-20.0); CO2, Blood 25 mmol/L (21-32); Calcium, Blood 8.4 mg/dL (8.5-10.1); Chloride, Blood 106 mmol/L (98-108); Creatinine, Blood 1.74 mg/dL (0.60-1.20); Globulin, Blood 3.9 g/dL (2.2-4.0); Glomerular Filtration Rate 39 (60-); Glucose, Blood 108 mg/dL (70-99); Potassium, Blood 4.3 mmol/L (3.5-5.5); Sodium, Blood 137 mmol/L (136-145); Total Protein, Blood 7.1 g/dL (6.4-8.2); Troponin I <0.015 ng/mL (0.000-0.040)
[2020-12-17 21:43] LABS: SARS-Cov-2 (COVID-19) PCR, MMC POSITIVE (NEGATIVE)
--- NOTE | 2020-12-17 22:45 | NUR ---
ASSUMED CARE RECEIVED REPORT FROM SYLVESTER THOMPSON AT 2220. PT ARRIVED FROM ED AT 2230. HE IS A&OX4, PLEASANT AND COOPERATIVE. HE IS ABLE TO AMBULATE TO BEDSIDE COMMODE WITH MINIMAL ASSISTANCE. GENERALIZED WEAKNESS R/T CONDITION. CURRENTLY FINISHING FIRST 1000ML BOLUS FROM THE ED. HE IS AFEBRILE AT 98.3. HE IS ON 5L VIA NC, SPO2 96-97%, HE DENIES SOB/DYSPNEA. LUNGS ARE DIMINISHED T/O. HR IS SR IN 60-70'S. SBP CURRENTLY 90-100'S, MAP >65. LEVOPHED GTT IS AVAILABLE, BUT NOT STARTED. ABDOMEN IS SOFT, BOWEL TONES X4. USING URINAL AT BEDSIDE. SKIN IS OVERALL C/D/I, BLE ARE DISCOLORED WITH SCALY, DRY SKIN/PATCHES. PT HAS MEDIPORT IN RIGHT UPPER CHEST, FLUIDS INFUSING. ORDERS REVIEWED AND WILL TREAT PRESCRIBED.
[2020-12-18 01:00] LABS: International Normalized Ratio 3.63
--- NOTE | 2020-12-18 04:45 | NUR ---
PT COMPLAINING OF SOB AND DYSPNEA, AND INCREASED COUGHING. REQUESTING TO SIT ON SIDE OF BED AND TRIPODING. SPO2 CONTINUES AT 96% ON 4L VIA NC. EXPIRATORY WHEEZE NOTED T/O. CALL PLACED TO DR. PARRISH. ORDERS GIVEN FOR BRONCHODILATOR PROTOCOL, INCREASE DEXAMETHASONE TO 60MG BID IV, AND BNP DRAWN THIS AM. RT CALLED AND TREATMENT NOT ADVISED. O2 CONTINUES AT 4L VIA NC AND PT SEEMS TO HAVE IMPROVED FROM SITTING ON BEDSIDE. SPO2 97%, ABLE TO SPEAK IN FULL SENTENCES AND COUGHING IMPROVED.
[2020-12-18 05:02] LABS: Bun/Creatinine Ratio 24.3 (12.0-20.0); Calcium, Blood 7.4 mg/dL (8.5-10.1); Creatinine, Blood 1.36 mg/dL (0.60-1.20); Potassium, Blood 4.6 mmol/L (3.5-5.5)
--- NOTE | 2020-12-18 06:39 | NUR ---
PT CURRENTLY SLEEPING. O2 DOWN TO 2L VIA NC, SPO2 93-96%. NO LONGER REPORTING SOB/DYSPNEA, ABLE TO SPEAK IN FULL SENTENCES. HR REMAINED SR IN 60-70'S. BP REMAINED STABLE WITH MAP >65, LEVOPHED NOT STARTED. PT HAD 2 LOOSE/LIQUID BOWEL MOVEMENTS. ABLE TO STAND AND USE BEDSIDE COMMODE WITH MINIMAL ASSISTANCE. CONTINUES TO BE A&O X4. REMAINED AFEBRILE T/O SHIFT, HOWEVER DID HAVE FREQUENT EPISODES OF CHILLS. MEDIPORT REMAINS ACCESSED, INFUSING NS AT 150ML/HR. WILL REPORT TO ONCOMING SHIFT
[2020-12-18 08:48] LABS: BASOPHILS PERCENT AUTO 0 % (0-2); EOSINOPHILS PERCENT AUTO 0 % (0-6); Hematocrit 37.2 % (37.0-53.0); Hemoglobin 12.6 g/dL (13.5-17.5); IMMATURE GRAN ABSOLUTE AUTO 0.02 K/mm3 (0.00-0.10); IMMATURE GRAN PERCENT AUTO 1 % (0-1); LYMPHOCYTES ABSOLUTE AUTO 0.14 K/mm3 (0.84-5.20); LYMPHOCYTES PERCENT AUTO 4 % (21-46); MONOCYTES PERCENT AUTO 3 % (4-13); Mean Corpuscular HGB 31.6 pg (26.0-34.0); Mean Corpuscular HGB Conc 33.9 g/dL (31.5-36.5); Mean Corpuscular Volume 93 fL (80-100); Mean Platelet Volume 10.8 fL (9.1-12.4); NEUTROPHILS ABSOLUTE AUTO 3.52 K/mm3 (1.96-9.15); NEUTROPHILS PERCENT AUTO 93 % (41-73); Platelet Count 149 K/mm3 (150-400); RDW Coefficient Variation 13.2 % (11.7-14.2); RDW Standard Deviation 45.3 fL (35.1-46.3); Red Blood Cell Count 3.99 M/mm3 (4.30-5.90); White Blood Cell Count 3.78 K/mm3 (4.00-11.30)
--- NOTE | 2020-12-18 17:12 | NUR ---
AOx4, complains of 3/10 chronic L hip pain, nonverbal indicators of pain not present, refuses any intervention for pain, NSR 80s, no ectopy noted, +2/+1 radial/dorsal pulses respectively, lungs coarse with exp wheezes, Pt at times accessory muscle use and complains SOB despite O2 WNL, IS initiated with good tolerance and Duneb order with good results absence of wheezes and overall improvement, voids urinal chasidy output, audible bowels non-tender, up to chair half of shift 1 person assist.
--- NOTE | 2020-12-18 20:00 | NUR ---
REPORT GIVEN REPORT GIVEN TO YVETTE Bob AT 1950. TWO PCU PCT'S TO TRANSFER PT UP TO ROOM 357 VIA ICU BED.
[2020-12-19 04:57] LABS: BASOPHILS PERCENT AUTO 0 % (0-2); EOSINOPHILS PERCENT AUTO 0 % (0-6); Hematocrit 37.5 % (37.0-53.0); Hemoglobin 12.9 g/dL (13.5-17.5); IMMATURE GRAN ABSOLUTE AUTO 0.03 K/mm3 (0.00-0.10); IMMATURE GRAN PERCENT AUTO 0 % (0-1); LYMPHOCYTES ABSOLUTE AUTO 0.16 K/mm3 (0.84-5.20); LYMPHOCYTES PERCENT AUTO 2 % (21-46); MONOCYTES ABSOLUTE AUTO 0.17 K/mm3 (0.16-1.47); MONOCYTES PERCENT AUTO 2 % (4-13); Mean Corpuscular HGB 31.4 pg (26.0-34.0); Mean Corpuscular HGB Conc 34.4 g/dL (31.5-36.5); Mean Corpuscular Volume 91 fL (80-100); Mean Platelet Volume 10.1 fL (9.1-12.4); NEUTROPHILS ABSOLUTE AUTO 6.66 K/mm3 (1.96-9.15); NEUTROPHILS PERCENT AUTO 95 % (41-73); Platelet Count 192 K/mm3 (150-400); RDW Coefficient Variation 13.2 % (11.7-14.2); RDW Standard Deviation 44.4 fL (35.1-46.3); Red Blood Cell Count 4.11 M/mm3 (4.30-5.90); White Blood Cell Count 7.02 K/mm3 (4.00-11.30)
[2020-12-19 05:13] LABS: International Normalized Ratio 3.35; Prothrombin Time Results 32.5 Sec (9.7-11.5)
--- NOTE | 2020-12-19 05:16 | NUR ---
HOSPITAL UNIT COORDINATOR SUMMARY PT ARRIVED TO UNIT AT 2033, TRANSFERRED FROM ICU. PT IS A/O X4, SLEPT WELL TONIGHT. AMBULATES WITH 1 ASSIST AND FWW TO THE BATHROOM. CONTINUES TO BE ON 2L O2 VIA NC SATTING IN THE HIGH 90'S. FINE COARSE LUNG SOUNDS THROUGHOUT LUNG LINDSEY. VSS. CALL LIGHT WITHIN REACH, WILL CONTINUE TO MONITOR.
[2020-12-19 06:11] LABS: Anion Gap 7 mmol/L (6-16); Blood Urea Nitrogen 37 mg/dL (8-24); Bun/Creatinine Ratio 36.3 (12.0-20.0); CO2, Blood 21 mmol/L (21-32); Calcium, Blood 7.9 mg/dL (8.5-10.1); Chloride, Blood 114 mmol/L (98-108); Creatinine, Blood 1.02 mg/dL (0.60-1.20); Glomerular Filtration Rate >60 (60-); Glucose, Blood 157 mg/dL (70-99); Potassium, Blood 4.3 mmol/L (3.5-5.5); Sodium, Blood 142 mmol/L (136-145)
--- NOTE | 2020-12-19 16:37 | NUR ---
PT AMBULATE WITH WALKER TO BATHROOM,PT SATED HE'S BEEN COUGHING,SAMPLE COLLECTED SENT TO LAB,PT BLE COARSE T/O LUNGS FIELD,PT IS COVID POSITIVE,PT SATURATION DROPS TO HIGH 80S WITH EXCERTION,PT ON 2L NC WHEN MOVING AROUND.PT ON ROOM AIR SATS IN HIGH 90S WHEN SITTING,PT HAVE PSORIASIS,PATCH ON BUTTOCKS,PT HAD A BM THIS AM,PT ALERT ORIENTED,PT C/O OF SWALLOW,PT DIET CHANGE TO MECHANICAL SOFT,PT DENIES PAIN,N/V,SOB.PT IN BED,BED IN LOW POSITION,CALL LIGHT IN [facility] WILL CONTINUE TO MONITOR.
--- NOTE | 2020-12-20 03:21 | NUR ---
HAND COREMAKER SUMMARY AWAKE AT INTERVALS. WAS SITTING IN CHAIR AT BEDSIDE MOST OF PM AND WHEN ASKED IF HE NEEDED ASSIST TO BED, HE DECLINED AND SAID HE COULD DO IT. O2 PER NC. LUNG SOUNDS DIMINISHED WITH WET COUGH WHEN ASSESSED. ANTIBIOTICS ADMINISTERED ORDERED - SEE MAR FOR DETAILS. CALL LIGHT IN REACH. ISOLATION PRECAUTIONS MAINTAINED. SPUTUM CX SENT, AWAITING RESULTS FROM LAB
[2020-12-20 05:11] LABS: International Normalized Ratio 2.38; Prothrombin Time Results 23.6 Sec (9.7-11.5)
[2020-12-20] MEDS ORDERED: ALBU2.5V5 INH (10:23)
[2020-12-20] MEDS ORDERED: VISBIOME 112.51 EACH PO (10:24)
[2020-12-20] MEDS ORDERED: AZIT250 PO (10:24)
[2020-12-20] MEDS ORDERED: CEFD300 PO (10:25)
[2020-12-20] MEDS ORDERED: DECADRON6 M1 PO (10:26)
--- NOTE | 2020-12-20 14:02 | NUR ---
PT ALERT ORIENTED X 4,PT REMAINS ON 2L NC WITH EXERTION,AND ROOM AIR SATTING 97 WITHOUT EXERTION,PT DENIES PAIN,N/V AND SHORTNESS OF BREATH.PT IS DISCHARGE HOME WITH HOME HEALTH AND HOME O2,O2 JUST GOT DELIVER AND PT IS DRESS ALL BELONGINGS PACK,AND WAITING FOR TO COME PICK HIM UP.
== END 2020-12-20 14:57 | disposition home or self-care (01) | DRG 871 ==
LOC: ER 17:51 → ICUW 21:32 → MEDS 21:32 → ICUE 22:25 → MEDS 12-18 20:34
PROVIDERS: Emergency Medicine; Internal Medicine; Pharmacist; Physician Assistant; Student in an Organized Health Care Education/Training Program; ADMIT Internal Medicine
PROC: 8E0ZXY6 Isolation (ICD-10-PCS; principal; 2020-12-17)
PROC: 3E02340 Introduction of Influenza Vaccine into Muscle, Percutaneous Approach (ICD-10-PCS; 2020-12-17)
PROC: 3E0333Z Introduction of Anti-inflammatory into Peripheral Vein, Percutaneous Approach (ICD-10-PCS; 2020-12-17)
PROC: 3E033XZ Introduction of Vasopressor into Peripheral Vein, Percutaneous Approach (ICD-10-PCS; 2020-12-17)
PROC: XW033E5 Introduction of Remdesivir Anti-infective into Peripheral Vein, Percutaneous Approach, New Technology Group 5 (ICD-10-PCS; 2020-12-18)
DX: A41.89 Other specified sepsis (principal); U07.1 COVID-19; J15.9 Unspecified bacterial pneumonia; J96.01 Acute respiratory failure with hypoxia; J12.82 Pneumonia due to coronavirus disease 2019; R65.21 Severe sepsis with septic shock; N17.9 Acute kidney failure, unspecified; C83.30 Diffuse large B-cell lymphoma, unspecified site; Z23 Encounter for immunization; Z86.718 Personal history of other venous thrombosis and embolism; Z79.01 Long term (current) use of anticoagulants; E78.5 Hyperlipidemia, unspecified; I10 Essential (primary) hypertension; Z86.73 Personal history of transient ischemic attack (TIA), and cerebral infarction without residual deficits; I73.9 Peripheral vascular disease, unspecified; Z90.49 Acquired absence of other specified parts of digestive tract; Z98.890 Other specified postprocedural states; Z96.642 Presence of left artificial hip joint; Z87.891 Personal history of nicotine dependence; Z88.5 Allergy status to narcotic agent; Z79.899 Other long term (current) drug therapy
CPT/HCPCS: 36415; 71045; 80048; 80053; 82330; 83605; 83880; 84145; 84484; 85025; 85610; 87040; 87070; 87205; 93005; 93010; 94640; 94667; 94760; 94761; 96374; 96375; 97110; 97116; 97162; 97165; 97530; 99285-25; A9270; J0696; J1100; J1642; J7030; J7050; J7060; U0004

== ENCOUNTER 2020-12-29 12:08 | Inpatient (IN) | payer MEDICARE, BC ==
[~2020-12-29] VITALS: Ht 180.3 cm; Wt 76.3 kg
[~2020-12-29 12:08] MED LIST changes: +ALBU2.5V5 INH; +CEFD300 PO; +DECADRON6 M1 PO; +VISBIOME 112.51 EACH PO
[2020-12-29 13:04] LABS: BASOPHILS ABSOLUTE AUTO 0.03 K/mm3 (0.00-0.23); BASOPHILS PERCENT AUTO 0 % (0-2); EOSINOPHILS PERCENT AUTO 0 % (0-6); Hematocrit 45.5 % (37.0-53.0); Hemoglobin 15.5 g/dL (13.5-17.5); IMMATURE GRAN ABSOLUTE AUTO 0.15 K/mm3 (0.00-0.10); IMMATURE GRAN PERCENT AUTO 1 % (0-1); LYMPHOCYTES ABSOLUTE AUTO 0.14 K/mm3 (0.84-5.20); LYMPHOCYTES PERCENT AUTO 1 % (21-46); MONOCYTES ABSOLUTE AUTO 1.83 K/mm3 (0.16-1.47); MONOCYTES PERCENT AUTO 8 % (4-13); Mean Corpuscular HGB 31.6 pg (26.0-34.0); Mean Corpuscular HGB Conc 34.1 g/dL (31.5-36.5); Mean Corpuscular Volume 93 fL (80-100); NEUTROPHILS ABSOLUTE AUTO 20.62 K/mm3 (1.96-9.15); NEUTROPHILS PERCENT AUTO 91 % (41-73); Platelet Count 183 K/mm3 (150-400); RDW Standard Deviation 45.7 fL (35.1-46.3); White Blood Cell Count 22.77 K/mm3 (4.00-11.30)
[2020-12-29 13:35] LABS: Alanine Aminotransfer (ALT/SGP 27 U/L (12-78); Albumin, Blood 2.8 g/dL (3.4-5.0); Albumin/Globulin Ratio 0.8 (0.8-1.8); Alk Phos 68 U/L (50-136); Anion Gap 8 mmol/L (6-16); Aspartate Aminotrans (AST/SGOT 17 U/L (12-37); Bilirubin, Total 1.4 mg/dL (0.1-1.0); Blood Urea Nitrogen 30 mg/dL (8-24); CO2, Blood 26 mmol/L (21-32); Chloride, Blood 109 mmol/L (98-108); Globulin, Blood 3.4 g/dL (2.2-4.0); Glomerular Filtration Rate >60 (60-); Glucose, Blood 102 mg/dL (70-99); Potassium, Blood 3.9 mmol/L (3.5-5.5); Sodium, Blood 143 mmol/L (136-145); Total Protein, Blood 6.2 g/dL (6.4-8.2); Troponin I <0.015 ng/mL (0.000-0.040)
[2020-12-29] MEDS ORDERED: ALLO300 PO (14:13)
[2020-12-29] MEDS ORDERED: LORA10ER PO (14:15)
[2020-12-29 14:54] LABS: Prothrombin Time Results 72.1 Sec (9.7-11.5)
[2020-12-29 15:22] LABS: International Normalized Ratio 7.86
--- NOTE | 2020-12-29 17:33 | NUR ---
SHIFT SUMMARY PATIENT IS ALERT AND ORIENTATED X4. PATIENT WAS ADMITTED FROM THE ED AT 1630. ADMISSION IS COMPLETE. PATIENT IS ON 6 LITERS OXIMIZER SATTING 95-98 PERCENT. PATIENT HAD A TEMP IN THE ED AND PATIENT STATES THAT HE DOES NOT FEEL A FEVER. MEDICATED PER EMAR WITH TORADOL AND TYLENOL. VITAL SIGNS REVIEWED. BED IN LOWEST POSITION AND CALL LIGHT IN REACH. WILL MONITOR UNTIL SHIFT CHANGE.
--- NOTE | 2020-12-30 04:16 | NUR ---
SHIFT SUMMARY PT IS AA&OX3, ABLE TO MAKE NEEDS KNOWN. PT IS COOPERATIVE WITH CARE. PT HAS DIFFICULTY SWALLOWING BIG PILLS DUE TO ASPIRATION RISK. MEDS ADMINISTERED IN APPLE SAUCE PER EMAR. PT HAD A CT SCAN DURING THIS SHIFT, RESULTS STILL PENDING. DENIES PAIN OR DISCOMFORT. ADLS PROVIDED,SAFETY MEASURES IN PLACE. WILL CONTINUE TO MONITOR.
[2020-12-30 05:43] LABS: BASOPHILS ABSOLUTE AUTO 0.01 K/mm3 (0.00-0.23); BASOPHILS PERCENT AUTO 0 % (0-2); EOSINOPHILS ABSOLUTE AUTO 0.04 K/mm3 (0.00-0.68); EOSINOPHILS PERCENT AUTO 1 % (0-6); Hemoglobin 12.4 g/dL (13.5-17.5); IMMATURE GRAN ABSOLUTE AUTO 0.04 K/mm3 (0.00-0.10); IMMATURE GRAN PERCENT AUTO 1 % (0-1); LYMPHOCYTES ABSOLUTE AUTO 0.25 K/mm3 (0.84-5.20); LYMPHOCYTES PERCENT AUTO 3 % (21-46); MONOCYTES PERCENT AUTO 11 % (4-13); Mean Corpuscular HGB 31.7 pg (26.0-34.0); Mean Corpuscular HGB Conc 33.5 g/dL (31.5-36.5); Mean Corpuscular Volume 95 fL (80-100); Mean Platelet Volume 11.1 fL (9.1-12.4); NEUTROPHILS ABSOLUTE AUTO 6.21 K/mm3 (1.96-9.15); NEUTROPHILS PERCENT AUTO 85 % (41-73); Platelet Count 128 K/mm3 (150-400); RDW Coefficient Variation 14.2 % (11.7-14.2); RDW Standard Deviation 46.5 fL (35.1-46.3); Red Blood Cell Count 3.91 M/mm3 (4.30-5.90); White Blood Cell Count 7.35 K/mm3 (4.00-11.30)
[2020-12-30 05:59] LABS: Prothrombin Time Results 70.6 Sec (9.7-11.5)
[2020-12-30 06:02] LABS: International Normalized Ratio 7.68
[2020-12-30 06:07] LABS: Alanine Aminotransfer (ALT/SGP 18 U/L (12-78); Albumin/Globulin Ratio 0.7 (0.8-1.8); Alk Phos 52 U/L (50-136); Anion Gap 3 mmol/L (6-16); Aspartate Aminotrans (AST/SGOT 16 U/L (12-37); Bilirubin, Total 1.3 mg/dL (0.1-1.0); Blood Urea Nitrogen 27 mg/dL (8-24); Bun/Creatinine Ratio 27.5 (12.0-20.0); CO2, Blood 28 mmol/L (21-32); Calcium, Blood 7.3 mg/dL (8.5-10.1); Chloride, Blood 112 mmol/L (98-108); Creatinine, Blood 0.98 mg/dL (0.60-1.20); Glomerular Filtration Rate >60 (60-); Glucose, Blood 89 mg/dL (70-99); Magnesium, Blood 1.9 mg/dL (1.6-2.4); Potassium, Blood 4.5 mmol/L (3.5-5.5); Sodium, Blood 143 mmol/L (136-145)
--- NOTE | 2020-12-30 17:16 | NUR ---
SHIFT SUMMARY PATIENT IS ALERT AND ORIENTATED X4. PATIENT IS PLEASENT AND COOPERATIVE WITH CARE. PATIENT HAS HAD DIFFICULTY SWALLOWING HX SINCE CANCER DX. PATIENT HAS HAD A SWALLOW EVAL DONE WELL SWALLOW XRAY DONE. PATIENTS DIET HAS CHANGED TO MEAL SUPERVISION AND ASPIRATION PRECAUTIONS. NO ACUTE EVENTS THIS SHIFT. PATIENT IS ON 6L OXIMIZER AND SATTING ABOVE [address]IGHT [address] WILL MONITOR UNTIL SHIFT CHANGE.
--- NOTE | 2020-12-31 04:34 | NUR ---
NO CHANGES TO REPORT THROUGH NIGHT. PT REMAINS ORIENTED X4, IND IN ROOM AND MAKES NO COMPLAINTS OF SOB. ABT RUNNING AND IV WNL. PT STATES HE FEELS WORN DOWN FROM BEING SICK. STAFF WILL CONT TO MONITOR.
[2020-12-31 05:34] LABS: Hemoglobin 11.3 g/dL (13.5-17.5); Mean Corpuscular HGB 31.6 pg (26.0-34.0); Mean Corpuscular HGB Conc 33.2 g/dL (31.5-36.5); Mean Corpuscular Volume 95 fL (80-100); Mean Platelet Volume 10.5 fL (9.1-12.4); Platelet Count 119 K/mm3 (150-400); RDW Coefficient Variation 13.9 % (11.7-14.2); Red Blood Cell Count 3.58 M/mm3 (4.30-5.90); White Blood Cell Count 5.12 K/mm3 (4.00-11.30)
[2020-12-31 05:49] LABS: International Normalized Ratio 3.86; Prothrombin Time Results 37.1 Sec (9.7-11.5)
[2020-12-31 06:09] LABS: Albumin, Blood 1.9 g/dL (3.4-5.0); Anion Gap 1 mmol/L (6-16); Blood Urea Nitrogen 18 mg/dL (8-24); Bun/Creatinine Ratio 17.6 (12.0-20.0); CO2, Blood 31 mmol/L (21-32); Calcium, Blood 7.1 mg/dL (8.5-10.1); Chloride, Blood 110 mmol/L (98-108); Creatinine, Blood 1.02 mg/dL (0.60-1.20); Glomerular Filtration Rate >60 (60-); Glucose, Blood 87 mg/dL (70-99); Phosphorus, Blood 2.4 mg/dL (2.5-4.9); Potassium, Blood 4.2 mmol/L (3.5-5.5); Sodium, Blood 142 mmol/L (136-145); Vancomycin, Trough 18.9 ug/mL (5.0-10.0)
[2020-12-31 12:41] LABS: Source, Urine Clean Catch
[2020-12-31 12:50] LABS: Appearance, Urine Clear (Clear); Bilirubin, Urine Neg (Neg); Blood, Urine Neg (Neg); Color, Urine Yellow (P-Yellow); Glucose Qualitative, Urine Neg (Neg); Ketones, Urine Neg (Neg); Leukocyte Esterase, Urine Neg (Neg); Nitrite, Urine Neg (Neg); Protein, Urine Neg (Neg); Specific Gravity, Urine 1.015 (1.003-1.022); Urobilinogen, Urine NORM (Normal)
--- NOTE | 2020-12-31 17:00 | NUR ---
SHIFT SUMMARY PATIENT IS ALERT AND ORIENTED X4. PATIENT IS INDENDENT IN THE ROOM TO BEDSIDE COMMODE AND URINAL. PATIENT WAS ON 6 LITERS OXIMIZER BUT IS ON ROOM AIR NOW SATTING IN THE MID 90S. NO ACUTE CHANGES THIS SHIFT. VITAL SIGNS REVIEWED. WILL CONTINUE TO MONITOR UNTIL SHIFT CHANGE.
[2021-01-01 05:09] LABS: Hematocrit 34.9 % (37.0-53.0); Hemoglobin 11.9 g/dL (13.5-17.5); Mean Corpuscular HGB 31.7 pg (26.0-34.0); Mean Corpuscular HGB Conc 34.1 g/dL (31.5-36.5); Mean Corpuscular Volume 93 fL (80-100); Mean Platelet Volume 10.5 fL (9.1-12.4); Platelet Count 121 K/mm3 (150-400); RDW Coefficient Variation 13.6 % (11.7-14.2); Red Blood Cell Count 3.75 M/mm3 (4.30-5.90); White Blood Cell Count 6.23 K/mm3 (4.00-11.30)
[2021-01-01 05:22] LABS: International Normalized Ratio 2.13; Prothrombin Time Results 21.3 Sec (9.7-11.5)
[2021-01-01 05:30] LABS: Anion Gap 2 mmol/L (6-16); Blood Urea Nitrogen 11 mg/dL (8-24); Bun/Creatinine Ratio 11.9 (12.0-20.0); CO2, Blood 28 mmol/L (21-32); Calcium, Blood 7.1 mg/dL (8.5-10.1); Chloride, Blood 111 mmol/L (98-108); Creatinine, Blood 0.92 mg/dL (0.60-1.20); Glomerular Filtration Rate >60 (60-); Glucose, Blood 87 mg/dL (70-99); Phosphorus, Blood 2.5 mg/dL (2.5-4.9); Potassium, Blood 3.9 mmol/L (3.5-5.5); Sodium, Blood 141 mmol/L (136-145)
--- NOTE | 2021-01-01 06:39 | NUR ---
PT ORIENTED X4, SLEPT WELL ON ROOM AIR THROUGH NIGHT, MAKES NO COMPLAINTS OF SOB. SATURATION GOOD. IND IN ROOM. ABT'S RUNNIG AND IV WNL. STAFF WILL CONT TO MONITOR.
--- NOTE | 2021-01-01 16:41 | NUR ---
SHIFT SUMMARY PATIENT IS ALERT AND ORIENTED X4. PATIENT IS IND TO BEDSIDE COMMODE AND URINAL. PATIENT NO ACUTE EVENTS THIS SHIFT. PATIENT HAS HAD CONTINUOUS IV FLUIDS DCD. PATIENT HAS HAD NO COMPLAINTS OF SOB, PAIN, NAUSEA, VOMITTING THIS SHIFT. VITAL SIGNS REVIEWED. WILL MONITOR UNTIL SHIFT CHANGE.
--- NOTE | 2021-01-02 05:23 | NUR ---
PT HAS SLEPT FOR MOST OF THE NIGHT WITH IV ABT'S RUNNING. AT AROUND 0500, PT COMPLAINED OF SOB, WAS SAT UP AND REQUESTED O2 VIA OXEMIZER. RT CALLED AND BREATHING TREATMENT ADMINISTERED. PT STATES HE FEELS BETTER AND BUT WOULD STILL LIKE TO USE O2 SET AT 3L. STAFF WILL CONTINUE TO MONITOR.
[2021-01-02 06:02] LABS: International Normalized Ratio 1.48; Prothrombin Time Results 15.1 Sec (9.7-11.5)
[2021-01-02] MEDS ORDERED: GUAI600T33 PO (12:41)
[2021-01-02] MEDS ORDERED: VISBIOME 112.51 EACH PO (12:52)
[2021-01-02] MEDS ORDERED: AMOCLA875 PO (12:52)
[2021-01-02] MEDS ORDERED: IPRAT-ALBUT 0.5-3 ML INH (12:53)
--- NOTE | 2021-01-02 13:40 | NUR ---
DISCHARGE PT HAS BEEN DISCHARGED HOME WITH HOME HEALTH AT 13:25 PORT DEACCESSED AND DISCHARGE INFORMATION GONE OVER.
== END 2021-01-02 13:38 | disposition home health service (06) | DRG 871 ==
LOC: ER 12:08 → MEDS 15:10
PROVIDERS: Emergency Medicine; Internal Medicine; Nurse Practitioner Acute Care; Physician Assistant; ADMIT Internal Medicine
PROC: 8E0ZXY6 Isolation (ICD-10-PCS; principal; 2020-12-29)
DX: A41.9 Sepsis, unspecified organism (principal); J69.0 Pneumonitis due to inhalation of food and vomit; J96.21 Acute and chronic respiratory failure with hypoxia; J18.9 Pneumonia, unspecified organism; U07.1 COVID-19; C83.30 Diffuse large B-cell lymphoma, unspecified site; J44.0 Chronic obstructive pulmonary disease with (acute) lower respiratory infection; J44.1 Chronic obstructive pulmonary disease with (acute) exacerbation; E78.5 Hyperlipidemia, unspecified; I10 Essential (primary) hypertension; R13.12 Dysphagia, oropharyngeal phase; E83.39 Other disorders of phosphorus metabolism; Z86.73 Personal history of transient ischemic attack (TIA), and cerebral infarction without residual deficits; I73.9 Peripheral vascular disease, unspecified; Z86.718 Personal history of other venous thrombosis and embolism; L40.9 Psoriasis, unspecified; Z90.49 Acquired absence of other specified parts of digestive tract; Z98.890 Other specified postprocedural states; Z79.01 Long term (current) use of anticoagulants; Z79.899 Other long term (current) drug therapy; Z88.5 Allergy status to narcotic agent; Z87.891 Personal history of nicotine dependence
CPT/HCPCS: 36415; 71045; 71260; 74230; 80053; 80069; 80202; 81003; 83605; 83735; 84145; 84484; 85025; 85027; 85610; 85730; 87040; 87070; 87205; 87449; 92610; 92611; 93005; 93010; 94640; 94760; 96365-59; 96375-59; 99285-25; A9270; J0295; J0360; J0692; J1642; J1885; J3370; J7030; J7050; J7060; Q9967

== ENCOUNTER → 2021-02-18 | Outpatient (CLI) | payer MEDICARE, BC ==
[~2021-02-18] MED LIST changes: +ALLO300 PO; +AMOCLA875 PO; +GUAI600T33 PO; +IPRAT-ALBUT 0.5-3 ML INH; +LORA10ER PO
[2021-02-20 13:16] LABS: Stool Occult Bld Immuno 1 Positive (NEGATIVE)
== END | disposition home or self-care (01) ==
LOC: LAB SHORT 11:30
PROVIDERS: Nurse Practitioner Family
DX: Z12.11 Encounter for screening for malignant neoplasm of colon (principal)
CPT/HCPCS: G0328

== ENCOUNTER 2021-05-23 09:05 | Day surgery (SDC) | payer MEDICARE, BC ==
[~2021-05-23] VITALS: Ht 180.3 cm; Wt 79.9 kg
--- NOTE | 2021-05-23 09:47 | NUR ---
INTO SDS VIA WC. History, Chart, Medications and Allergies reviewed before start of procedure. Lungs clear T/O to Auscultation. Patient confirms NPO status and agrees with scheduled surgery. Pre-Op teaching done. Pt verbalizes understanding. Patient States Post-Procedure ride home has been arranged.
--- NOTE | 2021-05-23 10:21 | NUR ---
PT'S PROCEDURE POSTPONED DUE TO ONLY BEING OFF COUMADIN FOR 2 DAYS AND NOT 5. PT UNDERSTANDING.
== END 2021-05-23 11:00 | disposition home or self-care (01) ==
LOC: ORSCMMR 09:05 → ORD 10:30 → ORSCMMR 11:00
DX: Z12.11 Encounter for screening for malignant neoplasm of colon (principal); Z53.9 Procedure and treatment not carried out, unspecified reason
CPT/HCPCS: J7120

== ENCOUNTER → 2021-05-30 | Outpatient (CLI) | payer MEDICARE, BC ==
[2021-05-30 21:31] LABS: Alanine Aminotransfer (ALT/SGP 17 U/L (12-78); Albumin, Blood 3.8 g/dL (3.4-5.0); Albumin/Globulin Ratio 1.6 (0.8-1.8); Alk Phos 84 U/L (50-136); Anion Gap 5 mmol/L (6-16); Aspartate Aminotrans (AST/SGOT 14 U/L (12-37); Bilirubin, Total 0.7 mg/dL (0.1-1.0); Blood Urea Nitrogen 17 mg/dL (8-24); Bun/Creatinine Ratio 15.7 (12.0-20.0); CO2, Blood 30 mmol/L (21-32); Calcium, Blood 8.5 mg/dL (8.5-10.1); Chloride, Blood 107 mmol/L (98-108); Creatinine, Blood 1.08 mg/dL (0.60-1.20); Globulin, Blood 2.4 g/dL (2.2-4.0); Glomerular Filtration Rate >60 (60-); Glucose, Blood 92 mg/dL (70-99); Lactate Dehydrogenase (Ld),Bld 154 U/L (100-240); Phosphorus, Blood 2.9 mg/dL (2.5-4.9); Potassium, Blood 4.5 mmol/L (3.5-5.5); Sodium, Blood 142 mmol/L (136-145); Total Protein, Blood 6.2 g/dL (6.4-8.2)
== END | disposition home or self-care (01) ==
LOC: LAB SHORT 11:21
PROVIDERS: Internal Medicine Hematology & Oncology
DX: C85.10 Unspecified B-cell lymphoma, unspecified site (principal)
CPT/HCPCS: 80053; 83615; 84100

== ENCOUNTER 2021-07-03 11:39 | Day surgery (SDC) | payer MEDICARE, BC ==
[~2021-07-03] VITALS: Ht 180.3 cm; Wt 79.7 kg
== END 2021-07-03 14:10 | disposition home or self-care (01) ==
LOC: ORSCSDS 11:39
PROVIDERS: Student in an Organized Health Care Education/Training Program
PROC: 0D5H8ZZ Destruction of Cecum, Via Natural or Artificial Opening Endoscopic (ICD-10-PCS; principal; 2021-07-03 13:00)
PROC: 0DBK8ZX Excision of Ascending Colon, Via Natural or Artificial Opening Endoscopic, Diagnostic (ICD-10-PCS; principal; 2021-07-03 13:00)
DX: R19.5 Other fecal abnormalities (principal); D12.2 Benign neoplasm of ascending colon; K55.20 Angiodysplasia of colon without hemorrhage; K64.4 Residual hemorrhoidal skin tags; C83.30 Diffuse large B-cell lymphoma, unspecified site; I73.9 Peripheral vascular disease, unspecified; Z86.718 Personal history of other venous thrombosis and embolism; Z79.01 Long term (current) use of anticoagulants; Z86.73 Personal history of transient ischemic attack (TIA), and cerebral infarction without residual deficits; E78.5 Hyperlipidemia, unspecified; I10 Essential (primary) hypertension; Z87.891 Personal history of nicotine dependence; Z79.899 Other long term (current) drug therapy
CPT/HCPCS: 88305; J2250; J2704; J7120

== ENCOUNTER → 2021-09-07 | Outpatient (CLI) | payer MEDICARE, BC ==
[2021-09-07 14:21] LABS: Albumin, Blood 3.9 g/dL (3.4-5.0); Albumin/Globulin Ratio 1.7 (0.8-1.8); Bilirubin, Direct 0.2 mg/dL (0.0-0.3); Bilirubin, Indirect 0.7 mg/dL (0.1-0.7); Bilirubin, Total 0.9 mg/dL (0.1-1.0); Bun/Creatinine Ratio 18.9 (12.0-20.0); Calcium, Blood 8.6 mg/dL (8.5-10.1); Creatinine, Blood 1.11 mg/dL (0.60-1.20); Globulin, Blood 2.3 g/dL (2.2-4.0); Potassium, Blood 4.5 mmol/L (3.5-5.5); Total Protein, Blood 6.2 g/dL (6.4-8.2)
== END | disposition home or self-care (01) ==
LOC: LAB SHORT 13:46 → LAB 13:46
PROVIDERS: Internal Medicine Hematology & Oncology
DX: C85.10 Unspecified B-cell lymphoma, unspecified site (principal)
CPT/HCPCS: 80053; 82248; 83615

== ENCOUNTER → 2021-10-25 | Outpatient (CLI) | payer MEDICARE, BC ==
[2021-10-25 14:36] LABS: Albumin, Blood 3.5 g/dL (3.4-5.0); Albumin/Globulin Ratio 1.4 (0.8-1.8); Bilirubin, Total 0.9 mg/dL (0.1-1.0); Bun/Creatinine Ratio 21.4 (12.0-20.0); Calcium, Blood 8.4 mg/dL (8.5-10.1); Creatinine, Blood 1.03 mg/dL (0.60-1.20); Globulin, Blood 2.5 g/dL (2.2-4.0); Phosphorus, Blood 2.6 mg/dL (2.5-4.9); Potassium, Blood 4.4 mmol/L (3.5-5.5)
== END | disposition home or self-care (01) ==
LOC: LAB 13:44 → LAB SHORT 13:44
PROVIDERS: Internal Medicine Hematology & Oncology
DX: C85.11 Unspecified B-cell lymphoma, lymph nodes of head, face, and neck (principal)
CPT/HCPCS: 80053; 83615; 84100